=== PATIENT | male | born 1965 | race African-American/Black ===

== ENCOUNTER 2024-09-12 19:25 | Emergency (ER) | payer BC ==
[~2024-09-12] VITALS: Ht 172.7 cm; Wt 72.6 kg
[2024-09-12] MEDS: DIATR MEGLU/DIATRIZOATE SODIUM 120 ML BOTTLE (GASTROGRAPHIN) PO ONE (20:30)
[2024-09-12] MEDS ORDERED: DIATR MEGLU/DIATRIZOATE SODIUM 30 ML BOTTLE (GASTROGRAPHIN) ONE (20:40)
[2024-09-13 11:06] VITALS: BP 112/76; TEMP 98.8; O2SAT 100
== END 2024-09-13 11:52 ==
LOC: ER 19:33
DX: Z43.1 Encounter for attention to gastrostomy (principal); I10 Essential (primary) hypertension; I48.91 Unspecified atrial fibrillation; Z87.820 Personal history of traumatic brain injury; Z88.8 Allergy status to other drugs, medicaments and biological substances; Z93.0 Tracheostomy status; Z99.11 Dependence on respirator [ventilator] status
CPT/HCPCS: 99285; 74018; 94799 ×2; 31720; Q9963 ×2